=== PATIENT | female | born 1935 | race Two or more races ===

== ENCOUNTER 2021-09-11 09:41 | Emergency (ER) | payer OTHER ==
[~2021-09-11] VITALS: Ht 162.6 cm; Wt 68.0 kg
[2021-09-11 12:56] VITALS: BP 147/75
[2021-09-11] MEDS ORDERED: HYDROcodone-ACET 5/325MG TAB PO ONE (13:00)
[2021-09-11] MEDS ORDERED: ONDANSETRON ODT 4 MG TAB PO ONE (13:00)
== END 2021-09-11 14:48 | disposition home or self-care (01) ==
LOC: ER 09:41
DX: S52.501A Unspecified fracture of the lower end of right radius, initial encounter for closed fracture (principal); I10 Essential (primary) hypertension; F17.210 Nicotine dependence, cigarettes, uncomplicated; W01.0XXA Fall on same level from slipping, tripping and stumbling without subsequent striking against object, initial encounter; Y93.89 Activity, other specified; Y92.89 Other specified places as the place of occurrence of the external cause; Y99.8 Other external cause status
CPT/HCPCS: 73090; 73110; 99284; Q0162

== ENCOUNTER → 2021-09-20 | Outpatient (CLI) | payer OTHER ==
[2021-09-20 09:11] LABS: Urine Blood Negative /uL (Negative); Urine Specific Gravity 1.011 (1.001-1.035)
[2021-09-20 09:15] LABS: Basophils # (auto) 0.1 10 ^3/uL (0-0.2); Basophils % (auto) 0.9 % (0.0-2.0); Eosinophils # (auto) 0.1 10 ^3/uL (0-0.8); Eosinophils % (auto) 1.5 % (0.0-7.0); Hematocrit 41.8 % (36.0-46.0); Hemoglobin 14.3 g/dL (12.2-16.2); Lymphocytes # (auto) 2.1 10 ^3/uL (0.4-5.4); Lymphocytes % (auto) 34.9 % (10.0-50.0); Mean Corpuscular Hgb Conc. 34.2 g/dL (32.0-36.0); Mean Corpuscular Volume 90.9 fL (80.0-100.0); Monocytes # (auto) 0.5 10 ^3/uL (0-1.3); Monocytes % (auto) 8.4 % (0.0-12.0); Neutrophils # (auto) 3.2 10 ^3/uL (1.6-8.6); Neutrophils % (auto) 54.3 % (37.0-80.0); Nucleated Red Blood Cells % 0.1 %; Red Cell Distribution Width 13.6 % (11.8-14.3)
[2021-09-20 09:37] LABS: Albumin 3.9 g/dL (3.4-5.0); Calcium 9.4 mg/dL (8.5-10.1)
[2021-09-20 09:42] LABS: BUN/Creatinine Ratio 16.9; Bilirubin, Total 0.5 mg/dL (0.2-1.0)
== END | disposition home or self-care (01) ==
LOC: LAB 08:41
PROVIDERS: ATTEND Internal Medicine
DX: J44.9 Chronic obstructive pulmonary disease, unspecified (principal); I10 Essential (primary) hypertension
CPT/HCPCS: 36415; 80053; 80061; 81003; 84443; 85025

== ENCOUNTER → 2021-12-26 | Outpatient (CLI) | payer OTHER ==
[2021-12-26 15:38] LABS: Urine Bacteria FEW /hpf (None Seen); Urine Blood Negative /uL (Negative); Urine Hyaline Cast FEW /lpf (0 - 2); Urine Mucus FEW (None Seen); Urine Specific Gravity 1.015 (1.001-1.035); Urine WBC 1 /hpf (0 - 5)
== END | disposition home or self-care (01) ==
LOC: LAB 14:48
PROVIDERS: ATTEND Internal Medicine
DX: R10.9 Unspecified abdominal pain (principal)
CPT/HCPCS: 81001

== ENCOUNTER 2024-05-23 09:03 | Emergency (ER) | payer OTHER ==
[~2024-05-23] VITALS: Ht 162.6 cm; Wt 68.1 kg
--- NOTE | 2024-05-23 11:16 | ED.PDOC ---
General HPI Comments 88 year old female brought in by EMS presents to the ED with a chief complaint of suprapubic pain onset 2 months. Patient states she had a Liu catheter placed about 2 months due to prolapsed bladder and since then has been experiencing suprapubic pain, low back pain as well as vaginal pain due to Liu. She states it has not been changed since it was placed, would like it to be taken out due to discomfort it causes. PMHx HTN. Denies chest pain, shortness of breath, abdominal pain, nausea, vomiting, diarrhea, dysuria, hematuria, dizziness. No other symptoms or modifying factors present at this time. Chief Complaint: Urinary Time Seen by MD: 10:42 Primary Care Provider: RICCO Reviewed notes: Medications, Allergies Allergies: Coded Allergies: NO KNOWN ALLERGIES (Unverified , 09/11/21) Home Meds Active Scripts Cefdinir (Cefdinir) 300 Mg Cap, 1 CAP PO BID for 10 Days, #20 CAP Prov:ИРИНА GAONA MD 05/23/24 Information Source: Patient, Emergency Med Personnel Mode of Arrival: EMS Severity: Moderate Inability to void: Mild Timing: Months, Came on: Gradually Duration: Since onset, Days Prehospital treatment: None Onset: Spontaneous, Other (Indwelling Liu catheter) Symptoms: Dysuria, Frequency, Urgency, Other History of: UTI, Urinary obstruction, Chronic indwelling liu, Other Location: Suprapubic, Abdomen associated signs and symptoms: Abdominal Pain, Back Pain, Dysuria, Frequency, Urgency, Other Past Medical History PAST MEDICAL HISTORY: HTN Surgical History: Unknown VP TRANSPORTATION History: Ovarian Cysts Family History Family History: Unknown Social History Smoker: Cigarettes, Less Than 1 Pack/Day Alcohol: Denies ETOH Use Drugs: Denies Drug Use Lives In: Home Constitutional: denies: chills, diaphoresis, fatigue, fever, malaise, sweats, weakness, others EENTM: denies: blurred vision, double vision, ear bleeding, ear discharge, ear drainage, ear pain, ear ringing, eye pain, eye redness, hearing loss, mouth pain, mouth swelling, nasal discharge, nose bleeding, nose congestion, nose pain, photophobia, tearing, throat pain, throat swelling, voice changes, others Respiratory: denies: cough, hemoptysis, orthopnea, SOB at rest, shortness of breath, SOB with excertion, stridor, wheezing, others Cardiovascular: denies: chest pain, dizzy spells, diaphoresis, Dyspnea on exertion, edema, irregular heart beat, left arm pain, lightheadedness, palpitations, PND, syncope, others Gastrointestinal: denies: abdomen distended, abdominal pain, blood streaked bowels, constipated, diarrhea, dysphagia, difficulty swallowing, hematemesis, melena, nausea, poor appetite, poor fluid intake, rectal bleeding, rectal pain, vomiting, others Genitourinary: reports: pain; denies: abnormal vagina bleeding, burning, dyspareunia, dysuria, flank pain, frequency, hematuria, incontinence, , vagina discharge, urgency, others Neurological: denies: dizziness, fainting, headache, left sided numbness, left sided weakness, numbness, paresthesia, pre-existing deficit, right sided numbnes s, right sided weakness, seizure, speech problems, tingling, tremors, weakness, others Musculoskeletal: reports: back pain; denies: gout, joint pain, joint swelling, muscle pain, muscle stiffness, neck pain, others Integumetry: denies: bruises, change in color, change in hair/nails, dryness, laceration, lesions, lumps, rash, wounds, others Allergic/Immunocompromised: denies: Difficulty Healing, Frequent Infections, Hives, Itching, others Hematologic/Lymphatic: denies: anemia, blood clots, easy bleeding, easy bruising, swollen glands, others Endocrine: denies: excessive hunger, excessive sweating, excessive thirst, excessive urination, flushing, intolerance to cold, intolerance to heat, unexplained weight gain, unexplained weight loss, others Psychiatric: denies: anxiety, bipolar disorder, depression, hopeless, panic disorder, schizophrenia, sleepless, suicidal, others All Other Systems: Reviewed and Negative Physical Exam General Appearance: Mild Distress, Normal HEENT: Normal ENT Inspection, PERRL/EOMI, Pharynx Normal, TMs Normal Neck: Full Range of Motion, Non-Tender, Normal, Normal Inspection Respiratory: Chest Non-Tender, Lungs Clear, No Accessory Muscle Use, No Respiratory Distress, Normal Breath Sounds Cardiovascular: No Edema, No JVD, No Murmur, No Gallop, Normal Peripheral Pulses, Regular Rate/Rhythm Breast Exam: Deferred Gastrointestinal: No Organomegaly, No Pulsatile Mass, Normal Bowel Sounds, Soft, Suprapubic (Patient required to have catheter removed), Tenderness Genitalia: Deferred Pelvic: Deferred Rectal: Deferred Extremities: No calf tenderness, Normal capillary refill, Normal inspection, Normal range of motion, Non-tender, No pedal edema Musculoskeletal : Apperance: Normal Neurologic: Alert, flower machine operator II-XII nml as Tested, No Motor Deficits, Normal Affect, Normal Mood, No Sensory Deficits Cerebellar Function: Normal Reflexes: Normal Skin: Dry, Normal Color, Warm, Wounds (Suspicious wound of the right face from basal cell carcinoma) Peripheral Pulses: 1+ carotid (R), 1+ carotid (L) Lymphatic: No Adenopathy Was a procedure done? Was a procedure done?: No EKG EKG : Pulse Rate (adult): 71 [place]: Normal Cardiac Rhythm: NSR, PAC's Block: RBBB Differential Diagnosis Kidney stone (Female): Musculoskeletal pain, Pyelonephritis Kidney stone (Male): N/A Penile/Scrotal: N/A Urinary Problem (Male): N/A Urinary Problem (Female): Pyelonephritis, Urinary retention, UTI X-Ray, Labs, Meds, VS Vital Signs Date Time Temp Pulse Resp B/P (MAP) Pulse Ox O2 Delivery O2 Flow Rate FiO2 05/23/24 15:30 98.0 64 10 135/71 (92) 97 98.0 05/23/24 15:30 64 10 97 Room Air* 0 21 05/23/24 11:24 71 05/23/24 09:28 98.2 86 16 145/73 (97) 98 05/23/24 09:27 71 Lab Test 05/23/24 11:49 05/23/24 00:00 Range/Units White Blood Count 5.3 4.4-10.8 10^3/uL Red Blood Count 4.76 4.0-5.20 10^6/uL Hemoglobin 14.4 12.2-16.2 g/dL Hematocrit 42.6 36.0-46.0 % Mean Corpuscular Volume 89.4 80.0-100.0 fL Mean Corpuscular Hemoglobin 30.2 28.0-32.0 pg Mean Corpuscular Hemoglobin Concent 33.7 32.0-36.0 g/dL Red Cell Distribution Width 14.5 H 11.8-14.3 % Platelet Count 282 140-450 10^3/uL Mean Platelet Volume 8.1 6.9-10.8 fL Neutrophils (%) (Auto) 52.7 37.0-80.0 % Lymphocytes (%) (Auto) 33.4 10.0-50.0 % Monocytes (%) (Auto) 10.2 0.0-12.0 % Eosinophils (%) (Auto) 2.5 0.0-7.0 % Basophils (%) (Auto) 1.2 0.0-2.0 % Neutrophils # (Auto) 2.8 1.6-8.6 10 ^3/uL Lymphocytes # (Auto) 1.8 0.4-5.4 10 ^3/uL Monocytes # (Auto) 0.5 0-1.3 10 ^3/uL Eosinophils # (Auto) 0.1 0-0.8 10 ^3/uL Basophils # (Auto) 0.1 0-0.2 10 ^3/uL Nucleated Red Blood Cells 0.1 % Sodium Level 133 L 136-145 mmol/L Potassium Level 3.4 L 3.5-5.1 mmol/L Chloride Level 96 L 98-107 mmol/L Carbon Dioxide Level 30 20-31 mmol/L Anion Gap 7 5-15 Blood Urea Nitrogen 18 9-23 mg/dL Creatinine 0.91 0.550-1.02 mg/dL Glomerular Filtration Rate Calc 61 >90 mL/min BUN/Creatinine Ratio 19.8 10.0-20.0 Serum Glucose 101 74-106 mg/dL Calcium Level 10.1 8.7-10.4 mg/dL Magnesium Level 2.2 1.6-2.6 mg/dL Lipase 47 12-53 U/L Urine Color Yellow Yellow Urine Clarity Clear Clear Urine pH 6.0 5.0-9.0 Urine Specific [place] 1.016 1.001-1.035 Urine Protein Negative Negative Urine Ketones Negative Negative Urine Blood Negative Negative /uL Urine Nitrite Negative Negative Urine Bilirubin Negative Negative Urine Urobilinogen Normal Negative mg/dL Urine Leukocyte Esterase 1+ Negative /uL Urine RBC 1 0 - 4 /hpf Urine Microscopic WBC 8 H 0-5 /HPF Urine Squamous Epithelial Cells Few <5 /hpf Urine Bacteria None seen None Seen /hpf Urine Glucose Normal Normal mg/dL Current Medications Medications (Trade) Dose Ordered Sig/Linnea Route Start Time Stop Time Status Last Admin Sodium Chloride 500 ml @ 500 mls/hr Q1H ONCE IVB 05/23/24 11:15 05/23/24 12:14 DC 05/23/24 15:43 X-Ray, Labs, Meds, VS Comment Course in the emergency department eventful patient came in complaining of bladder pain and pelvic pain because of a catheter which has been there without change two months Patient has atonic bladder and also prolapsed CBC normal Urine shows 1+ leukocyte esterase BNP potassium 3.4 Magnesium 2.2 Lipase 47 Patient will be hydrated Catheter will be removed as per patient request Patient will follow up with the urologist Time of 1ST Reevaluation: 11:12 Reevaluation 1ST: Unchanged Time of 2ND Reevaluation: 16:45 Reevaluation 2ND: Improved Consultation: PCP, Urology Patient Education/Counseling: Diagnosis, Treatment, Prognosis, Need For Follow Up Family Education/Counseling: Diagnosis, Treatment, Prognosis, Need For Follow Up, No Family Present Additional Information - The following tests were ordered, and results were reviewed by me: EKG, CBC, LIPASE, UA, MAGNESIUM, BMP - Additional information was gathered from interviewing the following independent Historian: EMS - I discussed treatments and results with medical personnel and: patient Departure 1 Departure Time of Disposition: 16:33 Impression: Primary Impression: Bladder irritation Additional Impressions: Liu catheter problem Qualified Codes: T83.9XXA - Unspecified complication of genitourinary prosthetic device, implant and graft, initial encounter Cystitis Encounter for Liu catheter removal Disposition: 01 HOME / SELF CARE / HOMELESS Condition: Fair Additional Instructions: Push fluids and follow up with the urologist e-Prescriptions Cefdinir (Cefdinir) 300 Mg Cap 1 CAP PO BID for 10 Days, #20 CAP Prov: ИРИНА GAONA MD 05/23/24 Critical Care Note Critical Care Time?: No Stability Stability form required: No Heart Score Heart Score: Heart Score Response (Comments) Value History Slightly Suspicious 0 EKG Normal 0 Age >65 2 Risk Factors 1 or 2 risk factors 1 Troponin N/A 0 Total 3 I personally scribed for ИРИНА GAONA MD ([email or web address]) on 05/23/24 at 11:16. Electronically submitted by Gwendolyn Colmenares ([email or web address]). I personally scribed for ИРИНА GAONA MD ([email or web address]) on 05/23/24 at 11:18. El ectronically submitted by Gwendolyn Colmenares ([email or web address]). ИРИНА GAONA MD May 23, 2024 11:16
[2024-05-23 12:22] LABS: Basophils # (auto) 0.1 10 ^3/uL (0-0.2); Basophils % (auto) 1.2 % (0.0-2.0); Eosinophils # (auto) 0.1 10 ^3/uL (0-0.8); Eosinophils % (auto) 2.5 % (0.0-7.0); Hematocrit 42.6 % (36.0-46.0); Hemoglobin 14.4 g/dL (12.2-16.2); Lymphocytes # (auto) 1.8 10 ^3/uL (0.4-5.4); Lymphocytes % (auto) 33.4 % (10.0-50.0); Mean Corpuscular Hemoglobin 30.2 pg (28.0-32.0); Mean Corpuscular Hgb Conc. 33.7 g/dL (32.0-36.0); Mean Corpuscular Volume 89.4 fL (80.0-100.0); Monocytes # (auto) 0.5 10 ^3/uL (0-1.3); Monocytes % (auto) 10.2 % (0.0-12.0); Neutrophils # (auto) 2.8 10 ^3/uL (1.6-8.6); Neutrophils % (auto) 52.7 % (37.0-80.0); Nucleated Red Blood Cells % 0.1 %; Platelet Count (auto) 282 10^3/uL (140-450); Red Blood Cells 4.76 10^6/uL (4.0-5.20); Red Cell Distribution Width 14.5 % (11.8-14.3); White Blood Cell 5.3 10^3/uL (4.4-10.8)
[2024-05-23 12:42] LABS: Anion Gap 7 (5-15); Carbon Dioxide 30 mmol/L (20-31); Chloride 96 mmol/L (98-107); Potassium 3.4 mmol/L (3.5-5.1); Sodium 133 mmol/L (136-145)
[2024-05-23 12:43] LABS: Calcium 10.1 mg/dL (8.7-10.4)
[2024-05-23 12:48] LABS: BUN/Creatinine Ratio 19.8 (10.0-20.0); Blood Urea Nitrogen 18 mg/dL (9-23); Glucose 101 mg/dL (74-106); Lipase 47 U/L (12-53)
[2024-05-23 12:49] LABS: Magnesium 2.2 mg/dL (1.6-2.6)
[2024-05-23 15:15] LABS: Urine Bacteria None Seen /hpf (None Seen)
[2024-05-23 15:30] VITALS: PULSE 64; RESP 10; TEMP 98; O2SAT 97
[2024-05-23] MEDS: SODIUM CHLORIDE 0.9% 500 ML IVB ONE (15:43)
[2024-05-23 15:46] LABS: Urine Blood Negative /uL (Negative); Urine Clarity Clear (Clear); Urine Color Yellow (Yellow); Urine Protein, UAD Negative (Negative); Urine Specific Gravity 1.016 (1.001-1.035); Urine Squamous Epithelial Cell FEW /hpf (<5); Urine Urobilinogen Normal (Negative); Urine WBC 8 /HPF (0-5)
[2024-05-23] MEDS ORDERED: CEFD300C2 PO (16:44)
[2024-05-23] MEDS: SODIUM CHLORIDE 0.9% 1,000 ML IV ONE (17:15)
[2024-05-23 19:00] VITALS: BP 127/57; PULSE 71; RESP 15; O2SAT 95
--- NOTE | 2024-05-25 11:24 | ECG ---
[facility] Test Date: 2024-05-23 Test Time: 09:27:07 Pat Name: BAUTISTA STATON Department: er Room: Gender: F Delicatessen Store Manager: emory : 1935 Requested By: EMERGENCY EMERGENCY Order Number: [id number] Reading MD: Measurements Intervals [place] Rate: 71 P: 9 MS: 155 QRS: -56 QRSD: 155 T: 14 QT: 436 QTc: 474 Interpretive Statements Sinus rhythm Atrial premature complex RBBB and LAFB Left ventricular hypertrophy Please click the below link to view image of tracing.
== END 2024-05-23 19:32 | disposition home or self-care (01) ==
LOC: ER 09:03 → EDBD 09:03 → ER 19:32
DX: T83.84XA Pain due to genitourinary prosthetic devices, implants and grafts, initial encounter (principal); N30.90 Cystitis, unspecified without hematuria; I10 Essential (primary) hypertension; F17.210 Nicotine dependence, cigarettes, uncomplicated; Z87.440 Personal history of urinary (tract) infections; Z46.6 Encounter for fitting and adjustment of urinary device; Y92.89 Other specified places as the place of occurrence of the external cause
CPT/HCPCS: 36415; 80048; 81001; 83690; 83735; 85025; 96360; 96361; 99285; J7030; J7040; 93005

== ENCOUNTER → 2024-07-01 | Outpatient (CLI) | payer OTHER ==
[~2024-07-01] MED LIST: CEFD300C2 PO
[2024-07-01 06:37] LABS: Urine Bacteria None Seen /hpf (None Seen)
[2024-07-01 07:31] LABS: Urine Blood Negative /uL (Negative); Urine Clarity Clear (Clear); Urine Color Light-Yellow (Yellow); Urine Protein, UAD Negative (Negative); Urine Specific Gravity 1.006 (1.001-1.035); Urine Squamous Epithelial Cell FEW /hpf (<5); Urine Urobilinogen Normal (Negative); Urine WBC 12 /HPF (0-5); Urine pH 6.5 (5.0-9.0)
== END | disposition home or self-care (01) ==
LOC: LAB 06:34
PROVIDERS: ATTEND Internal Medicine
DX: N39.0 Urinary tract infection, site not specified (principal)
CPT/HCPCS: 81001; 87086; 87088; 87186

== ENCOUNTER 2024-07-20 15:52 | Inpatient (IN) | payer OTHER ==
[~2024-07-20] VITALS: Ht 152.4 cm; Wt 60.7 kg
[2024-07-20 16:06] LABS: Hematocrit 38.1 % (36.0-46.0); Hemoglobin 13.6 g/dL (12.2-16.2); Mean Corpuscular Hemoglobin 30.8 pg (28.0-32.0); Mean Corpuscular Hgb Conc. 35.7 g/dL (32.0-36.0); Mean Corpuscular Volume 86.2 fL (80.0-100.0); Platelet Count (auto) 274 10^3/uL (140-450); Red Blood Cells 4.42 10^6/uL (4.0-5.20); Red Cell Distribution Width 14.2 % (11.8-14.3); White Blood Cell 7.1 10^3/uL (4.4-10.8)
--- NOTE | 2024-07-20 16:07 | ED.PDOC ---
History of Present Illness HPI Comments 88 y/o F, with a history of HTN, hypokalemia, and tobacco cigarette user, is BIBA for c/o abnormal labs, today. Per EMS report, patient's son called after being informed by her PCP's office on patient having low potassium level of 2.5 after having her blood drawn for routine lab blood work, earlier, today. P atient, at time of assessment, c/o generalized weakness. She denies any chest pain, shortness of breath, vision or speech changes, lightheadedness, fever, chills, or other associated symptoms at this time. Time Seen by MD: 15:45 Primary Care Provider: RICCO Reviewed Notes: Nurses Notes, Infertility Medical Assistant Notes, Medications, Allergies Allergies: Coded Allergies: NO KNOWN ALLERGIES (Unverified , 09/11/21) Home Meds Active Scripts Cefdinir (Cefdinir) 300 Mg Cap, 1 CAP PO BID for 10 Days, #20 CAP Prov:ИРИНА GAONA MD 05/23/24 Information Source: Patient, Emergency Med Personnel Mode of Arrival: EMS Severity: Moderate Timing: Hours Duration: Since onset Prehospital treatment: 12 Lead EKG, Chief Dietitian Past Medical History PAST MEDICAL HISTORY: HTN Past Medical History (Other): hypokalemia TBI Surgical History: Appendectomy, Tonsillectomy Surgical History (Other): right-knee surgery head-surgery s/p TBI COMMUNITY OUTREACH COORDINATOR History: Ovarian Cysts Family History Family History: Unknown Social History Smoker: Cigarettes, Less Than 1 Pack/Day Alcohol: Denies ETOH Use Drugs: Denies Drug Use Lives In: Home Constitutional: denies: chills, diaphoresis, fatigue, fever, malaise, sweats, weakness, others EENTM: denies: blurred vision, double vision, ear bleeding, ear discharge, ear drainage, ear pain, ear ringing, eye pain, eye redness, hearing loss, mouth pain, mouth swelling, nasal discharge, nose bleeding, nose congestion, nose pain, photophobia, tearing, throat pain, throat swelling, voice changes, others Respiratory: denies: cough, hemoptysis, orthopnea, SOB at rest, shortness of breath, SOB with excertion, stridor, wheezing, others Cardiovascular: denies: chest pain, dizzy spells, diaphoresis, Dyspnea on exe rtion, edema, irregular heart beat, left arm pain, lightheadedness, palpitations, PND, syncope, others Gastrointestinal: denies: abdomen distended, abdominal pain, blood streaked bowels, constipated, diarrhea, dysphagia, difficulty swallowing, hematemesis, melena, nausea, poor appetite, poor fluid intake, rectal bleeding, rectal pain, vomiting, others Genitourinary: denies: abnormal vagina bleeding, burning, dyspareunia, dysuria, flank pain, frequency, hematuria, incontinence, pain, , vagina discharge, urgency, others Neurological: reports: weakness; denies: dizziness, fainting, headache, left sided numbness, left sided weakness, numbness, paresthesia, pre-existing deficit, right sided numbness, right sided weakness, seizure, speech problems, tingling, tremors, others Musculoskeletal: denies: back pain, gout, joint pain, joint swelling, muscle pain, muscle stiffness, neck pain, others Integumetry: denies: bruises, change in color, change in hair/nails, dryness, laceration, lesions, lumps, rash, wounds, others Allergic/Immunocompromised: denies: Difficulty Healing, Frequent Infections, Hives, Itching, others Hematologic/Lymphatic: reports: others (abnormal labs ); denies: anemia, blood clots, easy bleeding, easy bruising, swollen glands Endocrine: denies: excessive hunger, excessive sweating, excessive thirst, excessive urination, flushing, intolerance to cold, intolerance to heat, unexplained weight gain, unexplained weight loss, others Psychiatric: denies: anxiety, bipolar disorder, depression, hopeless, panic disorder, schizophrenia, sleepless, suicidal, others All Other Systems: Reviewed and Negative Physical Exam General Appearance: Moderate Distress, Thin HEENT: Pale [place] (L), Pale [place] (R), Pharynx Normal, TMs Normal Neck: Full Range of Motion, Non-Tender, Normal, Normal Inspection Respiratory: Chest Non-Tender, Lungs Clear, No Accessory Muscle Use, No Respiratory Distress, Normal Breath Sounds Cardiovascular: No Edema, No JVD, No Murmur, No Gallop, Normal Peripheral Pulses, Regular Rate/Rhythm Breast Exam: Deferred Gastrointestinal: No Organomegaly, Non Tender, No Pulsatile Mass, Normal Bowel Sounds, Soft Genitalia: Deferred Pelvic: Deferred Rectal: Deferred Extremities: No calf tenderness, Normal capillary refill, Normal inspection, Normal range of motion, Non-tender, No pedal edema Musculoskeletal : Apperance: Normal Neurologic: Alert, pearl hand II-XII nml as Tested, Motor Weakness, Normal Affect, Normal Mood, No Sensory Deficits Cerebellar Function: Normal Reflexes: Normal Skin: Dry, Normal Color, Warm Lymphatic: No Adenopathy Was a procedure done? Was a procedure done?: No EKG EKG : Pulse Rate (adult): 83 [place]: Normal Cardiac Rhythm: NSR Block: RBBB Hypertrophy: LVH ST: Normal Differential Dx Considerations may include: hypokalemia, electrolyte imbalance, dehydration, malnutrition, viral syndrome, among others X-Ray, Labs, Meds, VS Vital Signs Date Time Temp Pulse Resp B/P (MAP) Pulse Ox O2 Delivery O2 Flow Rate FiO2 07/20/24 16:08 98.1 82 18 16/63 (47) 98 98.1 07/20/24 16:07 83 07/20/24 16:04 98.1 82 18 116/63 (80) 98 98.1 Lab Test 07/20/24 16:00 Range/Units White Blood Count 7.1 4.4-10.8 10^3/uL Red Blood Count 4.42 4.0-5.20 10^6/uL Hemoglobin 13.6 12.2-16.2 g/dL Hematocrit 38.1 # 36.0-46.0 % Mean Corpuscular Volume 86.2 80.0-100.0 fL Mean Corpuscular Hemoglobin 30.8 28.0-32.0 pg Mean Corpuscular Hemoglobin Concent 35.7 32.0-36.0 g/dL Red Cell Distribution Width 14.2 11.8-14.3 % Platelet Count 274 140-450 10^3/uL Mean Platelet Volume 7.1 6.9-10.8 fL Neutrophils (%) (Auto) 37.0-80.0 % Lymphocytes (%) (Auto) 10.0-50.0 % Monocytes (%) (Auto) 0.0-12.0 % Basophils (%) (Auto) 0.0-2.0 % Neutrophils # (Auto) 1.6-8.6 10 ^3/uL Lymphocytes # (Auto) 0.4-5.4 10 ^3/uL Monocytes # (Auto) 0-1.3 10 ^3/uL Differential Total Cells Counted Pending Neutrophils % (Manual) Pending Band Neutrophils % (Manual) Pending Lymphocytes % (Manual) Pending Monocytes % (Manual) Pending Eosinophils % (Manual) Pending Basophils % (Manual) Pending Metamyelocytes % (manual) Pending Myelocytes % (Manual) Pending Promyelocytes % (Manual) Pending Blast Cells % (Manual) Pending Reactive Lymphocytes Pending Platelet Estimate Pending Sodium Level 128 L 136-145 mmol/L Potassium Level 2.5 *L 3.5-5.1 mmol/L Chloride Level 86 L 98-107 mmol/L Carbon Dioxide Level 35 H 20-31 mmol/L Anion Gap 7 5-15 Blood Urea Nitrogen 27 H 9-23 mg/dL Creatinine 1.11 H 0.550-1.02 mg/dL Glomerular Filtration Rate Calc 48 >90 mL/min BUN/Creatinine Ratio 24.3 H 10.0-20.0 Serum Glucose 113 H 74-106 mg/dL Calcium Level 9.4 8.7-10.4 mg/dL IV Hep-Lock was established. The chemistry panel shows hyponatremia, hypochloremia as well as a potassium of 2.5 The CO2 level of 35 At this time, the patient was being admitted to the hospitalist The patient's CBC is within normal limits. We are going to continue monitoring the patient's potassium. The patient was being given a K rider 20 mEq IV piggyback as well as 20 mEq p.o.. At this time the patient will be admitted to the hospitalist Time of 1ST Reevaluation: 16:15 Reevaluation 1ST: Unchanged Patient Education/Counseling: Diagnosis, Treatment, Prognosis Family Education/Counseling: No Family Present Departure 1 Departure Time of Disposition: 16:48 Impression: Primary Impression: Hypokalemia Additional Impression: Generalized weakness Disposition: 09 ADMITTED INPATIENT Admit to: Tele Condition: Fair Critical Care Note Critical Care Time?: No Stability Stability form required: Yes Unstable for transfer: Telemetry monitoring (Telemetry monitoring required), ED Physician Assesment (Clinical assesment) Heart Score Heart Score: Heart Score Response (Comments) Value History N/A 0 EKG N/A 0 Age N/A 0 Risk Factors N/A 0 Troponin N/A 0 Total 0 I personally scribed for LAUREEN HICKS MD ([email or web address]) on 07/20/24 at 16:07. Electronically submitted by Que Traore ([email or web address]). LUAREEN HICKS MD Jul 20, 2024 16:07
[2024-07-20 16:17] LABS: Anion Gap 7 (5-15); Basophils % (manual) 0 (0.0-2.0); Blast Cells 0; Metamyelocytes % 0; Myelocytes % 0; Promyelocytes % 0; Reactive Lymphocytes 0
[2024-07-20 16:18] LABS: Calcium 9.4 mg/dL (8.7-10.4)
[2024-07-20 16:22] LABS: BUN/Creatinine Ratio 24.3 (10.0-20.0)
[2024-07-20 16:36] LABS: Blood Urea Nitrogen 27 mg/dL (9-23); Carbon Dioxide 35 mmol/L (20-31); Chloride 86 mmol/L (98-107); Glucose 113 mg/dL (74-106); Sodium 128 mmol/L (136-145)
[2024-07-20 16:38] LABS: Potassium 2.5 mmol/L (3.5-5.1)
[2024-07-20] MEDS ORDERED: POTASSIUM CHL 20MEQ/100ML 100 ML IV ONE (17:00)
[2024-07-20 17:04] LABS: Band Neutrophils % (manual) 3; Eosinophils % (manual) 1 (0-7); Lymphocytes % (manual) 24 (10.0-50.0); Monocytes % (manual) 7 (0-12); Platelet Estimate Adequate
[2024-07-20 18:39] VITALS: PULSE 68
[2024-07-20] MEDS: POTASSIUM CHL 20MEQ/50ML 50 ML IV ONE (18:55)
[2024-07-20] MEDS: POTASSIUM CHL 20 Meq TABLET PO ONE ×2 (18:55→22:24)
[2024-07-20] MEDS: SODIUM CHL 0.9% 100 ML IV SCH (19:09)
[2024-07-20 19:30] VITALS: O2SAT 94
[2024-07-20] MEDS ORDERED: ONDANSETRON HCL 4 MG/2 ML VIAL IV PRN (19:30)
[2024-07-20 21:10] LABS: Urine Bacteria None Seen /hpf (None Seen)
[2024-07-20 21:20] LABS: Urine Blood Negative /uL (Negative); Urine Clarity Clear (Clear); Urine Color Light-Yellow (Yellow); Urine Protein, UAD Negative (Negative); Urine Specific Gravity 1.009 (1.001-1.035); Urine Squamous Epithelial Cell FEW /hpf (<5); Urine Urobilinogen Normal (Negative); Urine WBC 1 /HPF (0-5)
[2024-07-20] MEDS: ACETAMINOPHEN 325 MG TAB PO PRN (22:24)
--- NOTE | 2024-07-20 23:27 | DVHHP2 ---
History of Present Illness Reason for Visit: Generalized weakness History of Present Illness 88-year-old female presents for evaluation of generalized weakness. Patient was contacted by her primary care provider's office and advised to present for evaluation of hypokalemia. Patient reports generalized weakness and fatigue ove r the past three days. No chest pain or palpitations. No shortness a breath. No other acute complaints. Past Medical History Hypertension, CHF, traumatic brain injury Review of Systems Review of Systems Review of systems are currently negative otherwise addressed in HPI. Allergies: Coded Allergies: NO KNOWN ALLERGIES (Unverified , 09/11/21) Medications Current Medications Medications Dose Ordered Sig/Linnea Route Start Time Stop Time Status Last Admin Dose Admin Triamterene/HCTZ 1 cap DAILY PO 07/21/24 10:00 Amlodipine Besylate 10 mg DAILY PO 07/21/24 10:00 Furosemide 20 mg DAILY PO 07/21/24 10:00 Ondansetron HCl 4 mg Q4HP PRN IV 07/20/24 19:30 Acetaminophen 650 mg Q6HP PRN PO 07/20/24 19:30 07/20/24 22:24 650 MG Exam Vital Signs Vital Signs Date Time Temp Pulse Resp B/P (MAP) Pulse Ox O2 Delivery O2 Flow Rate FiO2 07/20/24 19:30 94 Room Air* 0 21 07/20/24 19:30 97.6 68 11 138/56 (83) 97.6 Exam Gen: 88-year-old female in mild distress. Skin: Warm, dry, normal color and texture, no rash. HEENT: Normocephalic atraumatic, mucous membranes moist and pink. Neck: Cervical and supraclavicular nodes normal without enlargement, trachea is midline, thyroid gland is normal without masses. Pulmonary: Clear to auscultation and percussion bilaterally. Cardiac: Regular rate and rhythm. No murmur Abdomen: Soft, nontender, nondistended, bowel sounds present all 4 quadrants, no guarding, no rigidity, no organomegaly. Extremities: No cyanosis, clubbing, no edema Neuro: Cranial nerves II through XII grossly intact, normal affect and speech, no focal motor deficits. Labs/Xrays Labs Test 07/20/24 20:22 07/20/24 16:00 Range/Units Urine Color Light-yellow Yellow Urine Clarity Clear Clear Urine pH 7.0 5.0-9.0 Urine Specific [place] 1.009 1.001-1.035 Urine Protein Negative Negative Urine Ketones Negative Negative Urine Blood Negative Negative /uL Urine Nitrite Negative Negative Urine Bilirubin Negative Negative Urine Urobilinogen Normal Negative mg/dL Urine Leukocyte Esterase Negative Negative /uL Urine RBC <1 0 - 4 /hpf Urine Microscopic WBC 1 0-5 /HPF Urine Squamous Epithelial Cells Few <5 /hpf Urine Bacteria None seen None Seen /hpf Urine Glucose Normal Normal mg/dL White Blood Count 7.1 4.4-10.8 10^3/uL Red Blood Count 4.42 4.0-5.20 10^6/uL Hemoglobin 13.6 12.2-16.2 g/dL Hematocrit 38.1 # 36.0-46.0 % Mean Corpuscular Volume 86.2 80.0-100.0 fL Mean Corpuscular Hemoglobin 30.8 28.0-32.0 pg Mean Corpuscular Hemoglobin Concent 35.7 32.0-36.0 g/dL Red Cell Distribution Width 14.2 11.8-14.3 % Platelet Count 274 140-450 10^3/uL Mean Platelet Volume 7.1 6.9-10.8 fL Neutrophils (%) (Auto) 37.0-80.0 % Lymphocytes (%) (Auto) 10.0-50.0 % Monocytes (%) (Auto) 0.0-12.0 % Basophils (%) (Auto) 0.0-2.0 % Neutrophils # (Auto) 1.6-8.6 10 ^3/uL Lymphocytes # (Auto) 0.4-5.4 10 ^3/uL Monocytes # (Auto) 0-1.3 10 ^3/uL Differential Total Cells Counted 100.0 100 Neutrophils % (Manual) 65 37.0-80.0 Band Neutrophils % (Manual) 3 Lymphocytes % (Manual) 24 10.0-50.0 Monocytes % (Manual) 7 0-12 Eosinophils % (Manual) 1 0-7 Basophils % (Manual) 0 0.0-2.0 Metamyelocytes % (manual) 0 Myelocytes % (Manual) 0 Promyelocytes % (Manual) 0 Blast Cells % (Manual) 0 Reactive Lymphocytes 0 Platelet Estimate Adequate Sodium Level 128 L 136-145 mmol/L Potassium Level 2.5 *L 3.5-5.1 mmol/L Chloride Level 86 L 98-107 mmol/L Carbon Dioxide Level 35 H 20-31 mmol/L Anion Gap 7 5-15 Blood Urea Nitrogen 27 H 9-23 mg/dL Creatinine 1.11 H 0.550-1.02 mg/dL Glomerular Filtration Rate Calc 48 >90 mL/min BUN/Creatinine Ratio 24.3 H 10.0-20.0 Serum Glucose 113 H 74-106 mg/dL Calcium Level 9.4 8.7-10.4 mg/dL Assessment/Plan Assessment/Plan Assessment Symptomatic hypokalemia Hypertension Chronic kidney disease Plan Admit the patient to Med surge to the hospitalist Replete electrolytes Resume home medications Continue treatment per orders. Plan discussed with: Patient My Orders Orders - WILDER CASTRO Procedure Category Date Status Time Triamterene/Hctz PHA 07/21/24 In Process (Dyazide 37.5/25mg 10:00 Amlodipine Tablet PHA 07/21/24 In Process (Norvasc Tablet) 10:00 Furosemide Tablet PHA 07/21/24 In Process (Lasix Tablet) 10:00 Basic Metabolic Panel LAB 07/21/24 Verified 04:00 Admit ADMIT 07/20/24 Transmitted 19:30 Ondansetron Hcl PHA 07/20/24 In Process (Zofran) 19:30 Cardiac DIET 07/21/24 Transmitted Diet-2gna,Lofat,Lochol Breakfast Condition: Stable MANJEET 07/20/24 In Process 19:30 Acetaminophen Tablet PHA 07/20/24 In Process (Tylenol Tablet) 19:30 Bedrest With Bathroom MANJEET 07/20/24 In Process Privileg 19:30 Byrd Catheters ED NURSING 07/20/24 Transmitted Date of Service: Jul 20, 2024 Billing Provider: WILDER CASTRO Common Visit Codes: [id number] INP/OBS CARE (HIGH) WILDER CASTRO Jul 20, 2024 23:27
[2024-07-21 00:52] VITALS: BP 131/64; PULSE 71; RESP 17; TEMP 97.7; O2SAT 94
[2024-07-21] MEDS: DOCUSATE SOD 100 MG CAP PO PRN (04:24)
[2024-07-21 04:37] VITALS: BP 135/71; PULSE 75; RESP 18; TEMP 98.1; O2SAT 95
[2024-07-21 07:02] LABS: Anion Gap 6 (5-15); Calcium 9.5 mg/dL (8.7-10.4)
[2024-07-21 07:07] LABS: BUN/Creatinine Ratio 23.6 (10.0-20.0); Blood Urea Nitrogen 21 mg/dL (9-23)
[2024-07-21 07:08] LABS: Carbon Dioxide 32 mmol/L (20-31); Chloride 93 mmol/L (98-107); Glucose 107 mg/dL (74-106); Potassium 2.8 mmol/L (3.5-5.1); Sodium 131 mmol/L (136-145)
[2024-07-21 09:00] VITALS: BP 120/52; PULSE 65; RESP 16; TEMP 97.6; O2SAT 94
[2024-07-21] MEDS: TRIAMTERENE/HCTZ 37.5/25 MG CAP/TAB PO SCH (09:50)
[2024-07-21] MEDS: FUROSEMIDE 20 MG TAB PO SCH (10:00)
[2024-07-21] MEDS: amLODIPine BESYLATE 5 MG TAB PO SCH (10:08)
[2024-07-21] MEDS: POTASSIUM CHL 20 Meq TABLET PO ONE ×2 (10:08→10:13)
--- NOTE | 2024-07-21 10:26 | DVH ---
INDICATION: hypoxia TECHNIQUE: Frontal view of the chest. COMPARISON: None FINDINGS: The heart and mediastinal contours are grossly unremarkable. There is no evidence of pleural diseas e. The lungs are clear. The bony structures of the chest are intact without fracture. IMPRESSION: 1. No evidence of acute disease.
[2024-07-21] MEDS: SODIUM CHL 0.9% 50 ML IV ONE (11:23)
[2024-07-21] MEDS: POTASSIUM CHL 20MEQ/50ML 50 ML IV ONE (11:23)
--- NOTE | 2024-07-21 12:27 | ECG ---
[facility] Test Date: 2024-07-20 Test Time: 15:54:31 Pat Name: BAUTISTA STATON Department: ED Room: 0278 A Gender: F Tube Sorter: CHERY : 1935 Requested By: LAUREEN HICKS Order Number: [id number] Reading MD: Jimenez Coffman Measurements Intervals Hiko Rate: 83 P: -25 LA: 101 QRS: -64 QRSD: 154 T: 21 QT: 414 QTc: 487 Interpretive Statements Sinus rhythm Atrial premature complex Short LA interval RBBB and LAFB LVH by voltage Electronically Signed On 07-22-2024 13:08:17 PDT by Jimenez Coffman Please click the below link to view image of tracing.
[2024-07-21 13:00] VITALS: BP 135/60; PULSE 68; RESP 16; TEMP 97.3; O2SAT 95
--- NOTE | 2024-07-21 14:40 | DVHPNRES ---
Progress Note Date Seen: Jul 21, 2024 Resident Creating Document: MIGUE KOEHLER RESIDENT Medical Necessity Reason Pt with a Central, PICC or Fol: No Subjective Review of Systems This is a 88-year-old female with past medical history of hypertension, CHF, traumatic brain injury presented to the ED for an evaluation of generalized weakness. Patient reports that she was contacted by her primary care provider's office and advised to come to ED for an evaluation of hyperkalemia. She also mentioned generalized weakness, fatigue and diarrhoea for the past 3 days. She denies chest pain, shortness of breath, dizziness, blurred vision, abdominal pain, nausea and vomiting . Patient was seen and examined on the bedside. She is alert, oriented x3 and hard of hearing. Complaint of left arm pain and generalized weakness. No other active complaint Constitutional: No: Fever, Chills, Sweats, Weakness, Malaise, Other Eyes: No: Pain, Vision change, Conjunctivae inflammation, Eyelid inflammation, Other, Redness ENT: No: Ear pain, Ear discharge, Nose pain, Nose discharge, Nose congestion, Mouth pain, Mouth swelling, Throat pain, Throat swelling, Other Respiratory: Shortness of breath, improving No: Cough, Dry,Wheezing, Hemoptysis, Pleuritic Pain, Sputum, Wheezing, Other Cardiovascular: No: Chest Pain, Palpitations, Orthopnea, Paroxysmal Noc. Dyspnea, Edema, Lt Headedness, Other Gastrointestinal: No: Nausea, Vomiting, Abdominal Pain, Diarrhea, Constipation, Melena, Hematochezia, Other Musculoskeletal: No: other, neck pain, shoulder pain, arm pain, back pain, hand pain, leg pain, foot pain Neurological:; No: Weakness, Numbness, Incoordination, Change in speech, Confusion, Seizures Objective vital signs Vital Sign Date Time Temp Pulse Resp B/P (MAP) Pulse Ox O2 Delivery O2 Flow Rate FiO2 07/21/24 10:46 120/52 07/21/24 09:00 97.6 65 16 94 97.6 07/21/24 08:10 Room Air* 0 21 Total Intake and Output 07/20/24 07/20/24 07/21/24 15:00 23:00 07:00 Intake Total 150 ml 450 ml Output Total 2000 ml Balance 150 ml -1550 ml medications Current Medications Medications Dose Ordered Sig/Linnea Route Start Time Stop Time Status Last Admin Dose Admin Triamterene/HCTZ 1 cap DAILY PO 07/21/24 10:00 Hold 07/21/24 10:46 1 CAP Ondansetron HCl 4 mg Q4HP PRN IV 07/20/24 19:30 Acetaminophen 650 mg Q6HP PRN PO 07/20/24 19:30 07/20/24 22:24 650 MG Docusate Sodium 100 mg BIDPRN PRN PO 07/21/24 03:45 07/21/24 04:24 100 MG Acetaminophen/ Hydrocodone Bitart 1 tab Q6HPRN PRN PO 07/21/24 14:15 Sodium Chloride 1,000 ml @ 75 mls/hr [id number] IV 07/21/24 14:30 Examination Physical examination: General Appearance: Alert, Oriented X3, Cooperative, No acute distress HEENT: Atraumatic, PERRLA, EOMI, Mucous membrane moist/pink Respiratory: Clear to auscultation, Normal air movement Cardiovascular: Regular rate, Normal S1, Normal S2, No murmurs, no chest wall tenderness Abdominal: Normal bowel sounds, Soft, No tenderness, No hepatospenomegaly, No masses Extremities: No clubbing, No cyanosis, No edema, Normal pulses, No tenderness/swelling Skin: No rashes, No breakdown, No significant lesion Neuro: Use walker, Normal speech, Strength at 5/5 X4 ext, Normal tone, Sensation intact, grossly intact cranial nerves. Psych/Mental Status: Mental status NL, Mood NL laboratory and microbiology Laboratory Tests 07/21/24 05:06 07/20/24 16:00 Test 07/21/24 05:06 Range/Units Serum Glucose 107 H 74-106 mg/dL Labs and/or images reviewed: Labs reviewed by me, Image(s) reviewed by me Problem List/Assessment/Plan Problem List/Assessment/Plan Assessment and plan: # Symptomatic hypokalemia likely due to GI loss # Acute gastroenteritis, rule out infectious etiology - Ordered stool WBC, stool bacterial culture and C diff toxin assay - Oral potassium 60 mEq once and IV potassium 20 mEq once - Magnesium is within normal limits - IV normal saline at 75 mL/hours - Monitor potassium level # Hypertensive heart disease # Chronic kidney disease likely due to hypertensive nephropathy - Hold antihypertensive because of the hypotension # Bilateral upper arm swelling and erythema, rule out DVT - ordered Doppler scan of the upper limb - Lovenox 40 mg sc daily for DVT prophylaxis Goal of care discussed with the patient for more than 16 minutes full code Plan discussed with Dr. Hicks Plan discussed with: Patient, Other My Orders My Orders Orders - MIGUE KOEHLER RESIDENT Procedure Category Date Status Time Chest Xray 1 View XY 07/21/24 Resulted 08:31 Potassium LAB 07/21/24 Logged 12:00 * Factory Assembler Consultation CONS 07/21/24 Transmitted 12:09 Initiate Vte MANJEET 07/21/24 In Process Prophylaxis 13:46 * Dietary Consult CONS 07/21/24 Transmitted 13:46 Hydrocodone-Acet PHA 07/21/24 In Process 5/325mg Tab ([place] 14:15 Clostridium Difficile CAROLINE 07/21/24 Logged Toxin 14:13 Sodium Chloride 0.9% PHA 07/21/24 In Process 14:30 Bi Lat Upper Dvt US 07/21/24 Logged 14:14 Date of Service: Jul 21, 2024 Billing Provider: JOSE ALBERTO HICKS MD Common Visit Codes: [id number] INP/OBS CARE(HIGH) MIGUE KOEHLER RESIDENT Jul 21, 2024 14:40 JOSE ALBERTO HICKS MD Jul 21, 2024 21:51
[2024-07-21] MEDS: HYDROcodone-ACET 5/325MG TAB PO PRN (14:43)
--- NOTE | 2024-07-21 15:31 | DVH ---
Bilateral Upper Extremity Venous Duplex Date: 07/21/2024 02:57 PM Clinical History: REDNESS BILAT Comparison: None Findings: Duplex Doppler evaluation of the venous systems of the right and left lower neck and upper extremitie s including color Doppler and spectral/pulsed waveform analysis was performed. RIGHT SIDE: The internal jugular vein demonstrates appropriate compressibility and waveform variability. The subclavian vein is patent on color Doppler evaluation without intraluminal thrombus and demonstra basilio waveform variability. The visualized portion of the brachiocephalic vein is patent on color Doppler evaluation without intr aluminal thrombus and demonstrates waveform variability. The axillary vein demonstrates appropriate compressibility and waveform variability. The brachial veins demonstrate appropriate compressibility and patency on Doppler evaluation. The basilic vein demonstrates appropriate compressibility and patency on Doppler evaluation. The cephalic vein demonstrates appropriate compressibility and patency on Doppler evaluation. LEFT SIDE: The internal jugular vein demonstrates appropriate compressibility and waveform variability. The subclavian vein is patent on color Doppler evaluation without intraluminal thrombus and demonstra basilio waveform variability. The visualized portion of the brachiocephalic vein is patent on color Doppler evaluation without intr aluminal thrombus and demonstrates waveform variability. The axillary vein demonstrates appropriate compressibility and waveform variability. The brachial veins demonstrate appropriate compressibility and patency on Doppler evaluation. The basilic vein demonstrates appropriate compressibility and patency on Doppler evaluation. The cephalic vein demonstrates appropriate compressibility and patency on Doppler evaluation. IMPRESSION: No venous thrombus identified in the right or left upper extremity vessels evaluated above. If clinical concern/symptoms persist or worsen, short-interval follow-up study is suggested. END IMPRESSION:
[2024-07-21] MEDS: ENOXAPARIN SOD 40 MG/0.4 ML SYRINGE SC ONE (15:40)
[2024-07-21 17:00] VITALS: BP 113/56; PULSE 95; RESP 17; TEMP 97.7; O2SAT 97
[2024-07-21] MEDS: SODIUM CHLORIDE 0.9% 1,000 ML IV SCH (17:09)
[2024-07-21] MEDS: MORPHINE SULFATE INJ 2 MG/ml SYRG IV ONE (17:09)
[2024-07-21 21:00] VITALS: BP 123/57; PULSE 75; RESP 18; TEMP 98.2; O2SAT 93
[2024-07-22 01:00] VITALS: BP 145/63; PULSE 70; RESP 17; TEMP 97.8; O2SAT 95
[2024-07-22] MEDS: MORPHINE SULFATE INJ 2 MG/ml SYRG IV ONE (03:15)
[2024-07-22 05:00] VITALS: BP 117/53; PULSE 68; RESP 18; TEMP 97.8; O2SAT 93
[2024-07-22 06:30] LABS: Anion Gap 8 (5-15); Carbon Dioxide 25 mmol/L (20-31)
[2024-07-22 06:32] LABS: Calcium 9.3 mg/dL (8.7-10.4)
[2024-07-22 06:34] LABS: Chloride 98 mmol/L (98-107); Potassium 3.3 mmol/L (3.5-5.1); Sodium 131 mmol/L (136-145)
[2024-07-22 06:36] LABS: Glucose 96 mg/dL (74-106)
[2024-07-22 06:37] LABS: BUN/Creatinine Ratio 13.9 (10.0-20.0); Blood Urea Nitrogen 11 mg/dL (9-23)
[2024-07-22 08:00] VITALS: PULSE 68; RESP 18; O2SAT 96
[2024-07-22 08:30] VITALS: BP 121/53; PULSE 73; RESP 16; TEMP 98.1; O2SAT 97
[2024-07-22] MEDS: ENOXAPARIN SOD 40 MG/0.4 ML SYRINGE SC SCH (09:01)
[2024-07-22] MEDS ORDERED: POTA-36 PO (10:36)
[2024-07-22 12:13] VITALS: BP 120/52
[2024-07-22 13:00] VITALS: BP 135/52; PULSE 74; RESP 16; TEMP 97.7; O2SAT 97
[2024-07-22] MEDS: POTASSIUM CHL 20 Meq TABLET PO ONE (13:06)
--- NOTE | 2024-07-22 16:17 | DVHINCON2 ---
Date of service: Jul 22, 2024 Referring Physician hospitalist Reason for Consultation vaginal protrusion History of Present Illness pt is admitted for generalized weakness.pt was diagnosed with hypokalemia. pt has hx of uterine prolapse with peassary use in the past.HER LAST PAP WAS MANY YRS AGO.PT IS ON HOSPICE Past Medical History ENDOCARDITIS ,BRUCELOSIS Past Surgical History D AND C,FACIAL SX,OVARIAN CYST SURGERY Family History NA Social History ON HOSPICE Patient Family History: Patient reports no known family medical history. Allergies: Coded Allergies: NO KNOWN ALLERGIES (Unverified , 09/11/21) Home Meds Active Scripts Potassium Chloride (POTASSIUM CHLORIDE CR) 10 Meq Tb, 1 TAB PO DAILY for 30 Days, #30 TAB Prov:MIGUE KOEHLER RESIDENT 07/22/24 Discontinued Scripts Cefdinir (Cefdinir) 300 Mg Cap, 1 CAP PO BID for 10 Days, #20 CAP Prov:ИРИНА GAONA MD 05/23/24 Current Medications Current Medications Medications (Trade) Dose Ordered Sig/Linnea Route PRN Reason Start Time Stop Time Status Last Admin Enoxaparin Sodium (Lovenox) 40 mg DAILY SC 07/22/24 10:00 07/22/24 14:14 DC 07/22/24 09:01 Review of Systems Constitutional: no fever, chill, weight loss HEENT: no eye pain, no hearing loss, no oral lesion, no scleral icterus Heart: no chest pain, no chest pressure Lung: no cough, no dyspnea with exertion Abdomen: see HPI : no pain with urination, normal appearing urine Musculoskeletal: no joint pain, no muscle pain Neurological: no seizure, no loss of sensation, no weakness in extremities Pysch: no depression, no anxiety Derm: no rash, no jaundice Vital Signs Vital Signs Date Time Temp Pulse Resp B/P (MAP) Pulse Ox O2 Delivery O2 Flow Rate FiO2 07/22/24 13:00 97.7 74 16 135/52 (79) 97 97.7 07/22/24 08:00 Room Air* 0 21 Physical Exam SKIN: [DRY] HEENT: [NL] NECK: [NL] CARDIAC: [RRR] PULMONARY: [CTA] ABDOMEN: [SOFT,NT] PELVIC-TOTAL PROTRUSION OF CERVIX AND UTERUS,GRADE 2 CYSTOCELE AND RECTOCELE Labs/Diagnostic Data Labs Test 07/22/24 05:05 07/21/24 13:26 07/21/24 05:09 07/21/24 05:06 Range/Units Sodium Level 131 L 136-145 mmol/L Potassium Level 3.3 L 3.5-5.1 mmol/L Chloride Level 98 98-107 mmol/L Carbon Dioxide Level 25 20-31 mmol/L Anion Gap 8 5-15 Blood Urea Nitrogen 11 # 9-23 mg/dL Creatinine 0.79 0.550-1.02 mg/dL Glomerular Filtration Rate Calc 73 >90 mL/min BUN/Creatinine Ratio 13.9 10.0-20.0 Serum Glucose 96 74-106 mg/dL Calcium Level 9.3 8.7-10.4 mg/dL Stool for White Cells None seen B-Type Natriuretic Peptide 27.73 0-100 pg/mL Magnesium Level 2.2 1.6-2.6 mg/dL Test 07/20/24 20:22 07/20/24 16:00 Range/Units Urine Color Light-yellow Yellow Urine Clarity Clear Clear Urine pH 7.0 5.0-9.0 Urine Specific [place] 1.009 1.001-1.035 Urine Protein Negative Negative Urine Ketones Negative Negative Urine Blood Negative Negative /uL Urine Nitrite Negative Negative Urine Bilirubin Negative Negative Urine Urobilinogen Normal Negative mg/dL Urine Leukocyte Esterase Negative Negative /uL Urine RBC <1 0 - 4 /hpf Urine Microscopic WBC 1 0-5 /HPF Urine Squamous Epithelial Cells Few <5 /hpf Urine Bacteria None seen None Seen /hpf Urine Glucose Normal Normal mg/dL White Blood Count 7.1 4.4-10.8 10^3/uL Red Blood Count 4.42 4.0-5.20 10^6/uL Hemoglobin 13.6 12.2-16.2 g/dL Hematocrit 38.1 # 36.0-46.0 % Mean Corpuscular Volume 86.2 80.0-100.0 fL Mean Corpuscular Hemoglobin 30.8 28.0-32.0 pg Mean Corpuscular Hemoglobin Concent 35.7 32.0-36.0 g/dL Red Cell Distribution Width 14.2 11.8-14.3 % Platelet Count 274 140-450 10^3/uL Mean Platelet Volume 7.1 6.9-10.8 fL Neutrophils (%) (Auto) 37.0-80.0 % Lymphocytes (%) (Auto) 10.0-50.0 % Monocytes (%) (Auto) 0.0-12.0 % Basophils (%) (Auto) 0.0-2.0 % Neutrophils # (Auto) 1.6-8.6 10 ^3/uL Lymphocytes # (Auto) 0.4-5.4 10 ^3/uL Monocytes # (Auto) 0-1.3 10 ^3/uL Differential Total Cells Counted 100.0 100 Neutrophils % (Manual) 65 37.0-80.0 Band Neutrophils % (Manual) 3 Lymphocytes % (Manual) 24 10.0-50.0 Monocytes % (Manual) 7 0-12 Eosinophils % (Manual) 1 0-7 Basophils % (Manual) 0 0.0-2.0 Metamyelocytes % (manual) 0 Myelocytes % (Manual) 0 Promyelocytes % (Manual) 0 Blast Cells % (Manual) 0 Reactive Lymphocytes 0 Platelet Estimate Adequate Microbiology Date/Time Source Procedure Growth Status 07/21/24 13:26 Stool Stool Culture - Preliminary Resulted 07/21/24 13:26 Stool Shiga Toxin I & II - Final Resulted Primary Diagnosis HYPOKALEMIA 2' Diagnosis/Comorbidities PROCEDENTIA GRADE 2 CYSTOCELE AND RECTOCELE Plan PT DOESNT WANT ANY PEASSARY ,SHE WAS USING IT BEFORE AND DOESNT WISH TO HAVE IT ANYMORE .RECOMMEND SUPPORTIVE CARE Plan discussed with: Patient Visit Coding OBGYN Date of Service: Jul 21, 2024 Billing Provider: PHILL BULL DO TALKBACK HOST Common Visit Codes: [id number] INP/OBS CARE(HIGH) TALKBACK HOST Consultation Codes: [id number] CONSULT <55MIN PHILL BULL DO Jul 22, 2024 16:17
--- NOTE | 2024-07-22 17:11 | DVHDSRES ---
Discharge Summary Date of Admission Resident Creating Document: MIGUE KOEHLER RESIDENT Jul 20, 2024 at 19:30 Date of Discharge: Jul 22, 2024 Admitting Diagnosis Symptomatic Hypokalemia likely due to GI loss Wounds: No wound was present. Labs/Diagnostic Data: Laboratory Results Test 07/22/24 05:05 07/21/24 13:26 07/21/24 05:09 07/21/24 05:06 Sodium Level 131 mmol/L (136-145) Potassium Level 3.3 mmol/L (3.5-5.1) Chloride Level 98 mmol/L (98-107) Carbon Dioxide Level 25 mmol/L (20-31) Anion Gap 8 (5-15) Blood Urea Nitrogen 11 mg/dL (9-23) Creatinine 0.79 mg/dL (0.550-1.02) Glomerular Filtration Rate Calc 73 mL/min (>90) BUN/Creatinine Ratio 13.9 (10.0-20.0) Serum Glucose 96 mg/dL (74-106) Calcium Level 9.3 mg/dL (8.7-10.4) Stool for White Cells None seen B-Type Natriuretic Peptide 27.73 pg/mL (0-100) Magnesium Level 2.2 mg/dL (1.6-2.6) Test 07/20/24 20:22 07/20/24 16:00 Urine Color Light-yellow (Yellow) Urine Clarity Clear (Clear) Urine pH 7.0 (5.0-9.0) Urine Specific [place] 1.009 (1.001-1.035) Urine Protein Negative (Negative) Urine Ketones Negative (Negative) Urine Blood Negative /uL (Negative) Urine Nitrite Negative (Negative) Urine Bilirubin Negative (Negative) Urine Urobilinogen Normal mg/dL (Negative) Urine Leukocyte Esterase Negative /uL (Negative) Urine RBC <1 /hpf (0 - 4) Urine Microscopic WBC 1 /HPF (0-5) Urine Squamous Epithelial Cells Few /hpf (<5) Urine Bacteria None seen /hpf (None Seen) Urine Glucose Normal mg/dL (Normal) White Blood Count 7.1 10^3/uL (4.4-10.8) Red Blood Count 4.42 10^6/uL (4.0-5.20) Hemoglobin 13.6 g/dL (12.2-16.2) Hematocrit 38.1 % (36.0-46.0) Mean Corpuscular Volume 86.2 fL (80.0-100.0) Mean Corpuscular Hemoglobin 30.8 pg (28.0-32.0) Mean Corpuscular Hemoglobin Concent 35.7 g/dL (32.0-36.0) Red Cell Distribution Width 14.2 % (11.8-14.3) Platelet Count 274 10^3/uL (140-450) Mean Platelet Volume 7.1 fL (6.9-10.8) Neutrophils (%) (Auto) % (37.0-80.0) Lymphocytes (%) (Auto) % (10.0-50.0) Monocytes (%) (Auto) % (0.0-12.0) Basophils (%) (Auto) % (0.0-2.0) Neutrophils # (Auto) 10 ^3/uL (1.6-8.6) Lymphocytes # (Auto) 10 ^3/uL (0.4-5.4) Monocytes # (Auto) 10 ^3/uL (0-1.3) Differential Total Cells Counted 100.0 (100) Neutrophils % (Manual) 65 (37.0-80.0) Band Neutrophils % (Manual) 3 Lymphocytes % (Manual) 24 (10.0-50.0) Monocytes % (Manual) 7 (0-12) Eosinophils % (Manual) 1 (0-7) Basophils % (Manual) 0 (0.0-2.0) Metamyelocytes % (manual) 0 Myelocytes % (Manual) 0 Promyelocytes % (Manual) 0 Blast Cells % (Manual) 0 Reactive Lymphocytes 0 Platelet Estimate Adequate Other Laboratory Tests 07/22/24 05:05 07/20/24 16:00 Brief Hx & Hospital Course: This is a 88-year-old female with past medical history of hypertension, CHF, traumatic brain injury presented to the ED for an evaluation of generalized weakness. Patient reports that she was contacted by her primary care provider's office and advised to come to ED for an evaluation of hyperkalemia. She also mentioned generalized weakness, fatigue and diarrhoea for the past 3 days. She denies chest pain, shortness of breath, dizziness, blurred vision, abdominal pain, nausea and vomiting . Hospital course: Patient was presented with symptomatic hypokalemia likely due to GI loss which was replenished. Ruled out infectious cause of gastroenteritis. patient was complaining of bilateral upper arm swelling and erythema and Doppler scan of the upper Limb ruled out DVT. Consulted Obgyn for uterine prolapse and they diagnosed procidentia, 2nd degree cystocele and rectocele and mentioned patient does not want any pessary and recommended supportive care. Discharge plan was discussed with the patient and all questions were answered. Patient is being discharged to home with potassium 10 mEq daily for 1 month, continue home medications and advised to follow up with PCP and check BMP in 1 week. Physical examination: General Appearance: Alert, Oriented X3, Cooperative, No acute distress HEENT: Atraumatic, PERRLA, EOMI, Mucous membrane moist/pink Respiratory: Clear to auscultation, Normal air movement Cardiovascular: Regular rate, Normal S1, Normal S2, No murmurs, no chest wall tenderness Abdominal: Normal bowel sounds, Soft, No tenderness, No hepatospenomegaly, No masses Extremities: No clubbing, No cyanosis, No edema, Normal pulses, No tenderness/swelling Skin: No rashes, No breakdown, No significant lesion Neuro: Use walker, Normal speech, Strength at 5/5 X4 ext, Normal tone, Sensation intact, grossly intact cranial nerves. Psych/Mental Status: Mental status NL, Mood NL Consults/Reason for consult OBGYN was consulted. Operations or Procedures Bilateral Upper Extremity Venous Duplex Date: 07/21/2024 02:57 PM Clinical History: REDNESS BILAT Findings: Duplex Doppler evaluation of the venous systems of the right and left lower neck and upper extremities including color Doppler and spectral/pulsed waveform analysis was performed. RIGHT SIDE: The internal jugular vein demonstrates appropriate compressibility and waveform variability. The subclavian vein is patent on color Doppler evaluation without intraluminal thrombus and demonstrates waveform variability. The visualized portion of the brachiocephalic vein is patent on color Doppler evaluation without intraluminal thrombus and demonstrates waveform variability. The axillary vein demonstrates appropriate compressibility and waveform variability. The brachial veins demonstrate appropriate compressibility and patency on Doppler evaluation. The basilic vein demonstrates appropriate compressibility and patency on Doppler evaluation. The cephalic vein demonstrates appropriate compressibility and patency on Doppler evaluation. LEFT SIDE: The internal jugular vein demonstrates appropriate compressibility and waveform variability. The subclavian vein is patent on color Doppler evaluation without intraluminal thrombus and demonstrates waveform variability. The visualized portion of the brachiocephalic vein is patent on color Doppler evaluation without intraluminal thrombus and demonstrates waveform variability. The axillary vein demonstrates appropriate compressibility and waveform variability. The brachial veins demonstrate appropriate compressibility and patency on Doppler evaluation. The basilic vein demonstrates appropriate compressibility and patency on Doppler evaluation. The cephalic vein demonstrates appropriate compressibility and patency on Doppler evaluation. IMPRESSION: No venous thrombus identified in the right or left upper extremity vessels evaluated above. INDICATION: hypoxia FINDINGS: The heart and mediastinal contours are grossly unremarkable. There is no evidence of pleural disease. The lungs are clear. The bony structures of the chest are intact without fracture. IMPRESSION: 1. No evidence of acute disease. Condition at Discharge: Guarded Final Diagnosis/Problems List # Symptomatic hypokalemia likely due to GI loss # Acute gastroenteritis likely viral etiology # Hypertensive heart disease # Chronic kidney disease likely due to hypertensive nephropathy # Bilateral upper arm swelling and erythema, ruled out DVT # Procedentia, grade 2 rectocele and cystocele Discharge Disposition: Home Discharge Instruct/Medications Diet: Renal Activity: No Restrictions, As Tolerated Follow Up/Referral: Follow up with PCP in 1 week and check BMP to monitor potassium level. Medications: Potassium 10 mEq daily for 1 month Discharge Statement: "Patient was advised to return to the ER or call 911 if any headaches, dizziness, shortness of breath, chest pain, abdominal pain, bleeding, fevers, or worsening of medical condition. Patient was counseled about treatment plan, medications, possible side effects, patientverbalized understanding. All questions were answered to the best of my ability. This discharge took greater then 30 minutes in planning, reviewing documentation, counseling the patient, and discussing with other team members." ASSESSMENT ASSESSMENT Assessment # Symptomatic hypokalemia likely due to GI loss # Acute gastroenteritis likely viral etiology # Hypertensive heart disease # Chronic kidney disease likely due to hypertensive nephropathy # Bilateral upper arm swelling and erythema, ruled out DVT Date of Service: Jul 22, 2024 Billing Provider: JOSE ALBERTO ORTEGA MD Common Visit Codes: [id number] DISCH DAY >30min MIGUE KOEHLER Jul 22, 2024 17:11 JOSE ALBERTO ORTEGA MD Jul 22, 2024 21:20
== END 2024-07-22 13:41 | disposition home or self-care (01) | DRG 640 ==
LOC: ER 15:52 → EDBD 15:52 → OVERFLOW 19:30 → WEST WING 20:40
PROVIDERS: ADMIT Internal Medicine; ATTEND Internal Medicine
DX: E87.6 Hypokalemia (principal); N17.0 Acute kidney failure with tubular necrosis; I13.0 Hypertensive heart and chronic kidney disease with heart failure and stage 1 through stage 4 chronic kidney disease, or unspecified chronic kidney disease; A08.4 Viral intestinal infection, unspecified; N18.9 Chronic kidney disease, unspecified; I50.9 Heart failure, unspecified; N81.10 Cystocele, unspecified; N81.6 Rectocele; Z79.2 Long term (current) use of antibiotics; Z87.820 Personal history of traumatic brain injury; Z79.899 Other long term (current) drug therapy
CPT/HCPCS: 36415; 71045; 80048; 80053; 81001; 82607; 83735; 83880; 84132; 84443; 85007; 85025; 85027; 85048; 87045; 87427; 87493; 93005; 93970; G0378; J3480

== ENCOUNTER → 2024-07-20 | Outpatient (CLI) | payer OTHER ==
[2024-07-20 12:15] LABS: Basophils # (auto) 0.1 10 ^3/uL (0-0.2); Eosinophils # (auto) 0.1 10 ^3/uL (0-0.8); Hematocrit 42.9 % (36.0-46.0); Hemoglobin 14.9 g/dL (12.2-16.2); Lymphocytes # (auto) 2.3 10 ^3/uL (0.4-5.4); Lymphocytes % (auto) 30.3 % (10.0-50.0); Mean Corpuscular Hemoglobin 30.1 pg (28.0-32.0); Mean Corpuscular Hgb Conc. 34.7 g/dL (32.0-36.0); Mean Corpuscular Volume 86.8 fL (80.0-100.0); Monocytes # (auto) 0.7 10 ^3/uL (0-1.3); Monocytes % (auto) 9.1 % (0.0-12.0); Neutrophils # (auto) 4.5 10 ^3/uL (1.6-8.6); Neutrophils % (auto) 58.6 % (37.0-80.0); Nucleated Red Blood Cells % 0.1 %; Platelet Count (auto) 310 10^3/uL (140-450); Red Blood Cells 4.94 10^6/uL (4.0-5.20); Red Cell Distribution Width 14.2 % (11.8-14.3); White Blood Cell 7.7 10^3/uL (4.4-10.8)
[2024-07-20 12:35] LABS: Alanine Aminotransferase 15 U/L (7-40); Alkaline Phosphatase 92 U/L (46-116); Anion Gap 9 (5-15); BUN/Creatinine Ratio 17.9 (10.0-20.0); Blood Urea Nitrogen 22 mg/dL (9-23); Calcium 10.1 mg/dL (8.7-10.4); Glucose 93 mg/dL (74-106); Total Protein 7.5 g/dL (5.7-8.2)
[2024-07-20 12:36] LABS: Aspartate Aminotransferase 28 U/L (13-40); Bilirubin, Total 0.5 mg/dL (0.2-1.0)
[2024-07-20 13:39] LABS: Sodium 127 mmol/L (136-145)
[2024-07-20 13:40] LABS: Albumin 4.8 g/dL (3.2-4.8); Carbon Dioxide 33 mmol/L (20-31); Chloride 85 mmol/L (98-107); Potassium 2.5 mmol/L (3.5-5.1)
== END | disposition home or self-care (01) ==
LOC: LAB 11:12
PROVIDERS: ATTEND Internal Medicine
DX: I10 Essential (primary) hypertension (principal); J44.9 Chronic obstructive pulmonary disease, unspecified; G89.4 Chronic pain syndrome; K57.90 Diverticulosis of intestine, part unspecified, without perforation or abscess without bleeding
CPT/HCPCS: 36415; 80053; 82607; 84443; 85025

== ENCOUNTER → 2024-08-04 | Outpatient (CLI) | payer OTHER ==
[~2024-08-04] MED LIST changes: -CEFD300C2 PO; +POTA-36 PO
[2024-08-04 13:01] LABS: Urine Blood Negative /uL (Negative); Urine Clarity Clear (Clear); Urine Color Yellow (Yellow); Urine Protein, UAD Negative (Negative); Urine Specific Gravity 1.016 (1.001-1.035); Urine Urobilinogen Normal (Negative); Urine pH 6.5 (5.0-9.0)
== END | disposition home or self-care (01) ==
LOC: LAB 12:21
PROVIDERS: ATTEND Internal Medicine
DX: I10 Essential (primary) hypertension (principal); K57.90 Diverticulosis of intestine, part unspecified, without perforation or abscess without bleeding; J44.9 Chronic obstructive pulmonary disease, unspecified; G89.4 Chronic pain syndrome
CPT/HCPCS: 81003; 87086

== ENCOUNTER → 2024-08-18 | Outpatient (CLI) | payer OTHER ==
[2024-08-18 12:48] LABS: Anion Gap 7 (5-15); Calcium 9.8 mg/dL (8.7-10.4); Carbon Dioxide 30 mmol/L (20-31)
[2024-08-18 12:53] LABS: BUN/Creatinine Ratio 19.6 (10.0-20.0); Blood Urea Nitrogen 21 mg/dL (9-23)
[2024-08-18 12:54] LABS: Chloride 96 mmol/L (98-107); Glucose 145 mg/dL (74-106); Magnesium 1.8 mg/dL (1.6-2.6); Sodium 133 mmol/L (136-145)
== END | disposition home or self-care (01) ==
LOC: LAB 12:17
PROVIDERS: ATTEND Internal Medicine
DX: E87.4 Mixed disorder of acid-base balance (principal)
CPT/HCPCS: 36415; 80048; 83735

== ENCOUNTER → 2024-08-25 | Outpatient (CLI) | payer OTHER ==
[2024-08-25 13:30] LABS: Anion Gap 8 (5-15); Carbon Dioxide 26 mmol/L (20-31)
[2024-08-25 13:31] LABS: Calcium 9.9 mg/dL (8.7-10.4); Chloride 95 mmol/L (98-107); Sodium 129 mmol/L (136-145)
[2024-08-25 13:35] LABS: Blood Urea Nitrogen 19 mg/dL (9-23); Glucose 102 mg/dL (74-106)
== END | disposition home or self-care (01) ==
LOC: LAB 12:52
PROVIDERS: ATTEND Internal Medicine
DX: E78.5 Hyperlipidemia, unspecified (principal)
CPT/HCPCS: 36415; 80048

== ENCOUNTER 2025-01-04 11:02 | Outpatient (CLI) | payer OTHER ==
[2025-01-04 14:08] LABS: Hematocrit 42.1 % (36.0-46.0); Hemoglobin 14.5 g/dL (12.2-16.2); Mean Corpuscular Hemoglobin 30.5 pg (28.0-32.0); Mean Corpuscular Volume 88.5 fL (80.0-100.0); Nucleated Red Blood Cells % 0.2 %
[2025-01-04 15:14] LABS: Albumin 4.6 g/dL (3.2-4.8); Alkaline Phosphatase 72 U/L (46-116); Anion Gap 11 (5-15); BUN/Creatinine Ratio 13.0 (10.0-20.0); Bilirubin, Total 0.7 mg/dL (0.2-1.0); Blood Urea Nitrogen 13 mg/dL (9-23); Calcium 9.5 mg/dL (8.7-10.4); Carbon Dioxide 26 mmol/L (20-31); Chloride 100 mmol/L (98-107); Cholesterol 174 mg/dL (< 200); Glucose 89 mg/dL (74-106); Potassium 3.8 mmol/L (3.5-5.1); Sodium 137 mmol/L (136-145); Total Protein 7.4 g/dL (5.7-8.2); Triglycerides 100 mg/dL (< 150)
[2025-01-04 15:16] LABS: Alanine Aminotransferase < 9 U/L (7-40); HDL Cholesterol 69 mg/dL (40-59)
[2025-01-04 15:17] LABS: Free T3 3.22 pg/mL (2.3-4.2)
[2025-01-04 15:18] LABS: Follicle Stimulating Hormone 127.26 IU/L (SEE BELOW)
== END 2025-01-04 17:00 | disposition home or self-care (01) ==
LOC: LAB 11:02 → EDSTATUS 14:39 → LAB 17:00
PROVIDERS: ATTEND Internal Medicine
DX: N18.31 Chronic kidney disease, stage 3a (principal); E55.9 Vitamin D deficiency, unspecified; E53.9 Vitamin B deficiency, unspecified; E34.9 Endocrine disorder, unspecified; E07.89 Other specified disorders of thyroid; N95.1 Menopausal and female climacteric states; R73.03 Prediabetes; Z13.220 Encounter for screening for lipoid disorders
CPT/HCPCS: 36415; 80053; 80061; 82306; 82607; 82670; 83001; 83036; 84402; 84403; 84436; 84443; 84481; 85025; 86376

== ENCOUNTER → 2025-01-04 | Outpatient (CLI) | payer OTHER | END | disposition home or self-care (01) | LOC: LAB 09:53 | PROVIDERS: ATTEND Dermatology | DX: Z01.812 Encounter for preprocedural laboratory examination (principal); D48.5 Neoplasm of uncertain behavior of skin ==